=== PATIENT | male | born 1995 | race Caucasian/White ===

== ENCOUNTER → 2019-05-21 10:29 | Outpatient (CLI) | payer BC, SELFPAY ==
--- NOTE | 2019-05-21 | DI.RAD.S_ITS ---
PROCEDURE: FL BARIUM SWALLOW INDICATIONS: Epigastric pain, HEARTBURN COMPARISON: None. FINDINGS: Function: There is normal esophageal peristalsis. Significant elicited gastroesophageal reflux is seen with contrast refluxed to proximal esophageal lumen. There is normal transit of a calibrated barium tablet through the esophagus into the stomach. Morphology: Air-contrast images demonstrate normal mucosal morphology. Single contrast views show no esophageal strictures, extrinsic mass effects, or diverticula. Limited images of the stomach demonstrate normal appearance. IMPRESSION: Significant elicited gastroesophageal reflux with contrast reflux to upper esophagus. No ulceration nor stricture is seen. No gross intraluminal filling defect. Dictated by: Frederic Wynn M.D. on 05/21/2019 at 11:22 Approved by: Frederic Wynn M.D. on 05/21/2019 at 11:23
== END ==
PROVIDERS: PCP Student in an Organized Health Care Education/Training Program; Referring Provider Student in an Organized Health Care Education/Training Program; Visit Provider Student in an Organized Health Care Education/Training Program
DX: R10.13 Epigastric pain (principal); K21.9 Gastro-esophageal reflux disease without esophagitis
CPT/HCPCS: 74220

== ENCOUNTER → 2019-10-03 14:40 | Outpatient (CLI) | payer BC, SELFPAY ==
[2019-10-04 20:34] LABS: COVID19 Sendout Not Detected (Not Detect)
== END ==
PROVIDERS: PCP Student in an Organized Health Care Education/Training Program; Visit Provider Nurse Practitioner
DX: Z11.59 Encounter for screening for other viral diseases (principal)
CPT/HCPCS: 87635

== ENCOUNTER 2019-10-06 11:53 | Day surgery (SDC) | payer BC, SELFPAY ==
[2019-10-06] VITALS (7 sets, daily range): BP systolic 96–132; BP diastolic 58–79; PULSE 56–78; RESP 10–17; TEMP 36.2–37.2; O2SAT 96–99; BMI 21.5
--- NOTE | 2019-10-06 | PATH_ITS ---
[facility] Accession Number: [id number] . 01 Material submitted: . gastrointestinal site - GASTRIC . 02 Diagnosis: Gastric: Portions of gastric antral and body-type mucosa with mild chronic inflammation. Negative for Helicobacter organisms by immunohistochemistry. Negative for intestinal metaplasia. Negative for dysplasia and malignancy. V 10/08/2019 1423 Local . 02 Electronically signed: . Analia Jacobo MD, Pathologist NPI- [id number] . 01 Gross description: . GASTRIC: Received in formalin are 2 fragment(s) of newberry, soft tissue measuring 0.2 x 0.2 x 0.2 cm to 0.3 x 0.2 x 0.2 cm submitted entirely in 1 cassette(s) /YAHAIRA 10/07/2019 0149 Local . 02 Microscopic: . An immunohistochemical stain was performed to evaluate for Helicobacter organisms and is negative. The control stain showed appropriate reactivity. . * This test was developed and its performance characteristics determined by [email or web address]. It has not been cleared or approved by the U.S. Food and Drug Administration. The FDA has determined that such clearance or approval is not necessary. This test is used for clinical purposes. It should not be regarded as investigational or for research. . 02 Pathologist provided ICD-10: R10.13, K21.9, K29.70 . 02 CPT . 714119, [id number] Performed at: 01 [facility] [address], [place], [place] [id number] MD Luis Felipe Marrero MD Phone: [phone] Performed at: 02 [facility] [address] [place], [place] [id number] MD Aishwarya Aguilar MD Phone: [phone]
[2019-10-06] MEDS: MIDAZOLAM 5 MG/5 ML VIAL IV ×7 (13:33→13:42)
[2019-10-06] MEDS: fentaNYL 250 MCG/5 ML INJ IV (13:33)
--- NOTE | 2019-10-06 13:35 | PM.PREOP ---
Pre-operative Note Interval Note History & Physical reviewed/Exam performed by Physician: Yes Changes to H&P: No ASA Class (for procedural sedation): I
--- NOTE | 2019-10-06 13:35 | PM.OP.ENDO ---
Operative Date/Time/Diagnoses Date of procedure: 10/06/19 Time of procedure: 13:35 Pre-op diagnosis: See indication and findings Procedure & Clinicians Study performed: EGD Same procedure as scheduled: Yes Indications: GERD, epigastric pain Surgeon: Charline Garcia Procedure Notes Procedure in detail: After informed consent was obtained patient was placed in left lateral decubitus position. The video upper scope was placed into the oropharynx and with the patient's help swallowed into the esophagus. The esophagus, stomach, duodenum were carefully examined. On withdrawal, retroflexed view the GE junction was performed. The scope was removed. The patient tolerated procedure well. Blood loss none Complications none Sedation Total sedation time 10 minutes Versed 8 mg fentanyl 100 mg IV titration Findings 1. Normal esophagus other than a wide open GE junction. No esophagitis seen. 2. Patchy gastric erythema in the antrum biopsies taken to rule out Helicobacter 3. Otherwise normal duodenal bulb and sweep Patient will stay on his current medications and call for a telehealth follow-up with Dr. Sharee Maria
--- NOTE | 2019-10-06 14:04 | SUR.PHASEI ---
awake, tolerates fluids, to opd.
== END 2019-10-06 14:38 | disposition home or self-care (01) ==
PROVIDERS: PCP Student in an Organized Health Care Education/Training Program; Referring Provider Student in an Organized Health Care Education/Training Program; Visit Provider Internal Medicine Gastroenterology
PROC: 0DJ08ZZ Inspection of Upper Intestinal Tract, Via Natural or Artificial Opening Endoscopic (ICD-10-PCS; CPT 43235; principal; 2019-10-06 14:30)
DX: K29.50 Unspecified chronic gastritis without bleeding (principal); K21.9 Gastro-esophageal reflux disease without esophagitis
CPT/HCPCS: 43239; J2250; J3010

== ENCOUNTER → 2020-05-17 11:19 | Outpatient (CLI) | payer BC, SELFPAY ==
[2020-05-17 13:35] LABS: COVID19 -Nasal RAPID Negative (Negative)
== END ==
PROVIDERS: PCP Student in an Organized Health Care Education/Training Program; Visit Provider Physician Assistant
DX: Z20.822 Contact with and (suspected) exposure to COVID-19 (principal); Z01.812 Encounter for preprocedural laboratory examination
CPT/HCPCS: 87635